=== PATIENT | male | born 1955 | race Caucasian/White ===

== ENCOUNTER → 2023-08-18 | Outpatient (CLI) | payer OTHER ==
[~2023-08-18] MED LIST: Aspirin EC81 MG; Omega 3 Fish O1 EACH PO
== END ==
LOC: LAB SHORT 11:29 → PLD 11:29
DX: L57.8 Other skin changes due to chronic exposure to nonionizing radiation (principal); B88.0 Other acariasis
CPT/HCPCS: 88305

== ENCOUNTER → 2025-11-06 | Outpatient (CLI) | payer OTHER ==
[2025-11-06 16:38] LABS: CHOL/HDL RATIO 3.2; Cholesterol 169 mg/dL (50-200); HDL Cholesterol 53 mg/dL (>39); LDL/HDL RATIO 1.9; Low Density Lipoprotein Chol 101 mg/dL (0-110); Triglycerides 74 mg/dL (30-160); Very Low Density Lipoprot Chol 14 mg/dL (6-32)
== END ==
LOC: LAB SHORT 07:55 → LAB 07:55
PROVIDERS: Hospitalist
DX: Z13.6 Encounter for screening for cardiovascular disorders (principal)
CPT/HCPCS: 80061